=== PATIENT | female | born 1960 | race Caucasian/White ===

== ENCOUNTER → 2018-08-23 15:37 | Outpatient (CLI) | payer MEDICAID, SELFPAY ==
--- NOTE | 2018-08-23 15:41 | BI_ITS ---
MAMMOGRAPHY - BILATERAL SCREENING REASON FOR EXAM: Female, 58 years old. Routine annual screening examination. PERTINENT HISTORY: Sister with breast cancer. TECHNIQUE: Digital bilateral breast eliseo (3D mammographic acquisition) in the CC and MLO projections. 2-D mediolateral oblique (MLO) and craniocaudad (CC) views of both breasts were obtained. CAD: Full Field Digital Mammography with Computer Added Detection was performed. COMPARISON: Comparison is made with prior outside examination dated January 24, 2017. FINDINGS: Breast Composition: There are scattered areas of fibroglandular density. There are no dominant masses or suspicious calcifications. No other significant abnormalities are identified. There has been no significant change since the prior study. BI/SCREEN MAMM (CAD) W/ELISEO BILAT IMPRESSION: Stable bilateral screening mammogram. Yearly follow-up mammogram recommended. (A) ASSESSMENT CATEGORY: BIRADS Category 1: Negative. A letter regarding these results will be sent to the patient by the facility within 30 days. Approximately 10% of breast cancers are not detected by mammography. A normal mammogram should not delay biopsy of a clinically suspicious abnormality. [id number] Electronically Signed: Modesto Worley, at 9:08 EST , Service support ,
== END ==
PROVIDERS: Referring Provider Obstetrics & Gynecology; Visit Provider Obstetrics & Gynecology
DX: Z12.31 Encounter for screening mammogram for malignant neoplasm of breast (principal); Z80.3 Family history of malignant neoplasm of breast
CPT/HCPCS: 77063; 77067

== ENCOUNTER → 2018-10-16 16:45 | Outpatient (CLI) | payer OTHER, SELFPAY ==
[2018-10-16 11:10] VITALS: BMI 37.0
[2018-10-22 17:41] LABS: HPV APTIMA, High Risk Negative (Negative)
== END ==
PROVIDERS: Referring Provider Obstetrics & Gynecology; Visit Provider Obstetrics & Gynecology
DX: Z12.4 Encounter for screening for malignant neoplasm of cervix (principal)
CPT/HCPCS: 87624; 88175; G0145

== ENCOUNTER → 2019-08-27 07:40 | Outpatient (CLI) | payer OTHER, SELFPAY ==
[2018-10-16 11:10] VITALS: BMI 37.0
--- NOTE | 2019-08-27 07:41 | BI_ITS ---
MAMMOGRAPHY - BILATERAL SCREENING REASON FOR EXAM: Female, 59 years old. Routine annual screening examination. PERTINENT HISTORY: Sister with breast cancer. TECHNIQUE: Digital bilateral breast eliseo (3D mammographic acquisition) in the CC and MLO projections. 2-D mediolateral oblique (MLO) and craniocaudad (CC) views of both breasts were obtained. CAD: Full Field Digital Mammography with Computer Added Detection was performed. COMPARISON: Comparison is made with prior examination August 23, 2018. FINDINGS: Breast Composition: There are scattered areas of fibroglandular density. There are no dominant masses or suspicious calcifications. No other significant abnormalities are identified. There has been no significant change since the prior study. BI/SCREEN MAMM (CAD) W/ELISEO BILAT IMPRESSION: Stable bilateral screening mammogram. Yearly follow-up mammogram recommended. (A) ASSESSMENT CATEGORY: BIRADS Category 1: Negative. A letter regarding these results will be sent to the patient by the facility within 30 days. Approximately 10% of breast cancers are not detected by mammography. A normal mammogram should not delay biopsy of a clinically suspicious abnormality. [id number] Electronically Signed: Modesto Worley, at 9:08 EST , Service support ,
== END ==
PROVIDERS: Referring Provider Obstetrics & Gynecology; Visit Provider Obstetrics & Gynecology
DX: Z12.31 Encounter for screening mammogram for malignant neoplasm of breast (principal)
CPT/HCPCS: 77063; 77067

== ENCOUNTER → 2020-09-02 08:35 | Outpatient (CLI) | payer OTHER, SELFPAY ==
[2019-11-13 15:44] VITALS: BMI 37.0
--- NOTE | 2020-09-02 08:38 | BI_ITS ---
MAMMOGRAPHY - BILATERAL SCREENING REASON FOR EXAM: Female, 60 years old. Routine annual screening examination. PERTINENT HISTORY: Sister with breast cancer. TECHNIQUE: Digital bilateral breast eliseo (3D mammographic acquisition) in the CC and MLO projections. 2-D mediolateral oblique (MLO) and craniocaudad (CC) views of both breasts were obtained. CAD: Full Field Digital Mammography with Computer Added Detection was performed. COMPARISON: Comparison is made with prior study dated 08/27/2019 and 08/23/2018. FINDINGS: Breast Composition: There are scattered areas of fibroglandular density. There are no dominant masses or suspicious calcifications. No other significant abnormalities are identified. There has been no significant change since the prior study. BI/SCRN MAMM (CAD)W/ELISEO BILAT IMPRESSION: Stable bilateral screening mammogram. Yearly follow-up mammogram recommended. (A) ASSESSMENT CATEGORY: BIRADS Category 1: Negative. A letter regarding these results will be sent to the patient by the facility within 30 days. Approximately 10% of breast cancers are not detected by mammography. A normal mammogram should not delay biopsy of a clinically suspicious abnormality. [id number] Electronically Signed: Modesto Worley MD at 12:26 EDT , Service support ,
== END ==
PROVIDERS: Referring Provider Obstetrics & Gynecology; Visit Provider Obstetrics & Gynecology
DX: Z12.31 Encounter for screening mammogram for malignant neoplasm of breast (principal)
CPT/HCPCS: 77063; 77067

== ENCOUNTER → 2020-09-29 14:47 | Outpatient (CLI) | payer OTHER, SELFPAY ==
[2020-09-29 11:36] VITALS: BMI 37.2
[2020-09-29 15:13] LABS: Absolute Lymphocyte Count 3.13 X10^3/uL (0.83-4.51); Absolute Neutrophil Count 7.3 X10^3/uL (2.0-7.7); Basophil# 0.06 X10^3/uL; Basophil% 0.5 % (0-1); Eosinophils% 1.7 % (0-5); Hematocrit 42.3 % (37-47); Hemoglobin 13.3 g/dL (12.0-15.0); Lymphocyte # 3.13 X10^3/ul (4.0); Lymphocyte % 27.3 % (19-41); Mean Corp Hgb Conc 31.4 g/dL (32-36); Mean Corpuscular Hgb 27.5 pg (27.0-32.0); Mean Corpuscular Volume 87.4 fL (81-99); Mean Platelet Vol. 10.9 fl (6.2-12.0); Monocyte# 0.74 X10^3/uL; Monocyte% 6.5 % (0-10); NRBC Flagged by Analyzer 0 % (0-5); Neutrophil # 7.29 X10^3/uL (2.7-7.7); Neutrophil % 63.7 % (47-70); Platelet Count 285 K/mm3 (150-450); RBC Distribution Width CV 13.5 % (11.6-14.6); RBC Distribution Width SD 43.2 fl (35.1-43.9); Red Blood Count 4.84 M/mm3 (4.2-5.4); White Blood Count 11.5 K/mm3 (4.4-11.0)
[2020-09-29 16:08] LABS: Anion Gap 5 (5-15); BUN 17 mg/dL (7-18); BUN/Creat Ratio 23.9 RATIO (10-20); Calcium,Total 9.2 mg/dL (8.5-10.1); Chloride 106 mmol/L (98-107); Creatinine, Serum 0.71 mg/dL (0.55-1.02); EST Glomerular Filtration Rate 89 mL/min (>60); Est Glom Filt Rate - Afr Amer 107 mL/min (>60); Glucose 89 mg/dL (74-106); Magnesium 2.4 mg/dL (1.6-2.6); Potassium 3.7 mmol/L (3.5-5.1); Sodium Level 138 mmol/L (136-145); Thyroid Stim Hormone (TSH) 1.44 uIU/mL (0.358-3.74)
== END ==
PROVIDERS: Referring Provider Internal Medicine Cardiovascular Disease; Visit Provider Internal Medicine Cardiovascular Disease
DX: R00.2 Palpitations (principal); R03.0 Elevated blood-pressure reading, without diagnosis of hypertension
CPT/HCPCS: 36415; 80048; 83735; 84443; 85025

== ENCOUNTER → 2020-10-25 12:34 | Outpatient (CLI) | payer OTHER, SELFPAY ==
[2020-09-29 11:36] VITALS: BMI 37.2
== END ==
PROVIDERS: Referring Provider Internal Medicine Cardiovascular Disease; Visit Provider Internal Medicine Cardiovascular Disease
DX: R00.2 Palpitations (principal); R03.0 Elevated blood-pressure reading, without diagnosis of hypertension
CPT/HCPCS: 93225; 93226

== ENCOUNTER → 2020-10-26 14:31 | Outpatient (CLI) | payer OTHER, SELFPAY ==
[2020-09-29 11:36] VITALS: BMI 37.2
--- NOTE | 2020-10-26 14:33 | ECHOD_ITS ---
Reason For Study: Arrhythmia Left Ventricle Normal LV size. Left ventricular systolic function is normal. The estimated ejection fraction is 60 %. Stage 1 diastolic dysfunction. No regional wall motion abnormalities noted. Right Ventricle Normal RV size. Normal systolic function. Atria Normal left atrium. Normal right atrium. Mitral Valve Normal mitral valve. Tricuspid Valve Normal tricuspid valve. Aortic Valve Normal aortic valve. Trisinus/trileaflet aortic valve. Pulmonic Valve Normal pulmonic valve. Great Vessels Normal aortic root. The pulmonary artery is normal size. Normal inferior vena cava. Pericardium/Pleural No pericardial effusion. MMode/2D Measurements & Calculations LVIDd: 4.3 cm IVSd: 0.99 cm LA dimension: 4.1 cm LVIDs: 2.9 cm LVPWd: 1.2 cm FS: 33.1 % LAV(MOD-bp): 45.8 ml LA A4 area: 16.7 cm2 RA A4 area: 14.5 cm2 LAV(MOD-bp) Indexed: 23.0 ml/m2 LAV(MOD-sp2): 45.4 ml LAV(MOD-sp4): 46.1 ml Time Measurements MV dec time: 0.25 sec Doppler Measurements & Calculations MV E max kai: 63.1 cm/sec Lat Peak E' Kai: 9.4 cm/sec Med Peak E' Kai: 5.9 cm/sec MV A max kai: 117.6 cm/sec E/E' lat: 6.7 E/E' med: 10.7 MV E/A: 0.54 MV V2 max: 117.8 cm/sec MV P1/2t max kai: 70.5 cm/sec Ao V2 max: 113.6 cm/sec MV max P.5 mmHg MV P1/2t: 95.5 msec Ao max P.2 mmHg MV V2 mean: 57.9 cm/sec MV mean P.6 mmHg MV dec slope: 216.4 cm/sec2 MV V2 VTI: 22.9 cm MVA(P1/2t): 2.3 cm2 LV V1 max: 97.1 cm/sec PA V2 max: 120.4 cm/sec LV V1 max P.8 mmHg ECHO/Echo Complete Interpretation Summary Normal LV size. Left ventricular systolic function is normal. The estimated ejection fraction is 60 %. Stage 1 diastolic dysfunction. Structurally normal valves. Ordering Physician: Ashu Carpenter Referring Physician: Ashu Crapenter Performed By: Nelson Beltran RCS
== END ==
PROVIDERS: Referring Provider Internal Medicine Cardiovascular Disease; Visit Provider Internal Medicine Cardiovascular Disease
DX: R00.2 Palpitations (principal); R03.0 Elevated blood-pressure reading, without diagnosis of hypertension
CPT/HCPCS: 93306

== ENCOUNTER → 2021-01-20 08:21 | Outpatient (CLI) | payer OTHER, SELFPAY ==
[2021-01-13 08:48] VITALS: BMI 37.0
[2021-01-20 12:24] LABS: Cholesterol 143 mg/dL (200); High Density Lipoprotein 70 mg/dL; Triglycerides 66 mg/dL; Very Low Density Lipoprotein 13 mg/dL (5-40)
[2021-01-20 12:51] LABS: Vitamin D,25 Hydroxy 10.8 ng/mL
[2021-01-20 13:31] LABS: ALB/GLOB Ratio 1.2 RATIO (0.9-2.4); AST(SGOT) 15 U/L (15-37); Alanine Aminotransfer ALT/SGPT 26 U/L (13-56); Albumin, Serum 3.9 g/dL (3.2-5.0); Alkaline Phosphatase 57 U/L (45-117); Anion Gap 6 (5-15); BUN 13 mg/dL (7-18); BUN/Creat Ratio 24.1 RATIO (10-20); Calcium,Total 8.9 mg/dL (8.5-10.1); Chloride 106 mmol/L (98-107); Creatinine, Serum 0.54 mg/dL (0.55-1.02); EST Glomerular Filtration Rate 122 mL/min (>60); Est Glom Filt Rate - Afr Amer 148 mL/min (>60); Globulin 3.2 g/dL (2.2-4.2); Glucose 86 mg/dL (74-106); Potassium 3.7 mmol/L (3.5-5.1); Protein, Total 7.1 g/dL (6.4-8.2); Sodium Level 139 mmol/L (136-145)
== END ==
PROVIDERS: Obstetrics & Gynecology; PCP Internal Medicine; Referring Provider Internal Medicine; Visit Provider Internal Medicine
DX: Z00.00 Encounter for general adult medical examination without abnormal findings (principal); I10 Essential (primary) hypertension; R00.2 Palpitations
CPT/HCPCS: 36415; 80053; 80061; 82306; 84443

== ENCOUNTER 2021-09-12 08:25 | Outpatient (CLI) | payer OTHER, SELFPAY ==
--- NOTE | 2021-09-12 08:29 | BI_ITS ---
MAMMOGRAPHY - BILATERAL SCREENING REASON FOR EXAM: Female, 61 years old. Routine annual screening examination. PERTINENT HISTORY: Sister with breast cancer. TECHNIQUE: Digital bilateral breast eliseo (3D mammographic acquisition) in the CC and MLO projections. 2-D mediolateral oblique (MLO) and craniocaudad (CC) views of both breasts were obtained. CAD: Full Field Digital Mammography with Computer Added Detection was performed. COMPARISON: Comparison is made with prior study dated 09/02/2020 and 08/27/2019. FINDINGS: Breast Composition: There are scattered areas of fibroglandular density. There are no dominant masses or suspicious calcifications. No other significant abnormalities are identified. There has been no significant change since the prior study. BI/SCRN MAMM (CAD)W/ELISEO BILAT IMPRESSION: Stable bilateral screening mammogram. Yearly follow-up mammogram recommended. (A) ASSESSMENT CATEGORY: BIRADS Category 1: Negative. A letter regarding these results will be sent to the patient by the facility within 30 days. Approximately 10% of breast cancers are not detected by mammography. A normal mammogram should not delay biopsy of a clinically suspicious abnormality. [id number] Electronically Signed: Modesto Worley MD at 9:20 EDT ,
== END 2021-09-12 23:59 | disposition home or self-care (01) ==
LOC: OPBI 08:27
PROVIDERS: PCP Internal Medicine; Visit Provider Obstetrics & Gynecology
DX: Z12.31 Encounter for screening mammogram for malignant neoplasm of breast (principal)
CPT/HCPCS: 77063; 77067

== ENCOUNTER → 2022-09-25 | Outpatient (CLI) | payer OTHER, SELFPAY ==
--- NOTE | 2022-09-25 09:56 | BI_ITS ---
MAMMOGRAPHY - BILATERAL SCREENING REASON FOR EXAM: Female, 62 years old. Routine annual screening examination. PERTINENT HISTORY: Sister with breast cancer. Remote left stereotactic breast biopsy. TECHNIQUE: Digital bilateral breast eliseo (3D mammographic acquisition) in the CC and MLO projections. 2-D mediolateral oblique (MLO) and craniocaudad (CC) views of both breasts were obtained. CAD: Full Field Digital Mammography with Computer Added Detection was performed. COMPARISON: Comparison is made with prior study September 12, 2021 and September 02, 2020. FINDINGS: Breast Composition: The breasts are almost entirely fatty. There are no dominant masses or suspicious calcifications. Stable bilateral fat-containing axillary lymph nodes. No other significant abnormalities are identified. There has been no significant change since the prior study. BI/SCRN MAMM (CAD)W/ELISEO BILAT IMPRESSION: Stable bilateral screening mammogram. Yearly follow-up mammogram recommended. (A) ASSESSMENT CATEGORY: BIRADS Category 2: Benign. A letter regarding these results will be sent to the patient by the facility within 30 days. Approximately 10% of breast cancers are not detected by mammography. A normal mammogram should not delay biopsy of a clinically suspicious abnormality. [id number] Electronically Signed: Modesto Worley MD at 10:48 EDT ,
== END | disposition home or self-care (01) ==
LOC: OPBI 09:53
PROVIDERS: PCP Internal Medicine; Visit Provider Obstetrics & Gynecology
DX: Z12.31 Encounter for screening mammogram for malignant neoplasm of breast (principal)
CPT/HCPCS: 77063; 77067

== ENCOUNTER → 2023-10-08 | Outpatient (CLI) | payer OTHER, SELFPAY ==
--- NOTE | 2023-10-08 09:51 | BI_ITS ---
MAMMOGRAPHY - BILATERAL SCREENING REASON FOR EXAM: Female, 63 years old. Routine annual screening examination. PERTINENT HISTORY: Sister with breast cancer. TECHNIQUE: Digital bilateral breast eliseo (3D mammographic acquisition) in the CC and MLO projections. 2-D mediolateral oblique (MLO) and craniocaudad (CC) views of both breasts were obtained. CAD: Full Field Digital Mammography with Computer Added Detection was performed. COMPARISON: Comparison is made with prior study dated September 25, 2022 and September 12, 2021. FINDINGS: Breast Composition: The breasts are almost entirely fatty. There are no dominant masses or suspicious calcifications. Stable bilateral fat-containing axillary lymph nodes. No other significant abnormalities are identified. There has been no significant change since the prior study. BI/SCRN MAMM (CAD)W/ELISEO BILAT IMPRESSION: Stable bilateral screening mammogram. Yearly follow-up mammogram recommended. (A) ASSESSMENT CATEGORY: BIRADS Category 2: Benign. A letter regarding these results will be sent to the patient by the facility within 30 days. Approximately 10% of breast cancers are not detected by mammography. A normal mammogram should not delay biopsy of a clinically suspicious abnormality. [id number] Electronically Signed: Modesto Worley MD at 11:17 EDT ,
== END | disposition home or self-care (01) ==
LOC: OPBI 09:51
PROVIDERS: PCP Internal Medicine; Referring Provider Obstetrics & Gynecology; Visit Provider Obstetrics & Gynecology
DX: Z12.31 Encounter for screening mammogram for malignant neoplasm of breast (principal)
CPT/HCPCS: 77063; 77067

== ENCOUNTER → 2023-12-03 | Outpatient (CLI) | payer OTHER, SELFPAY ==
[2023-12-07 12:09] LABS: HPV APTIMA, High Risk Negative (Negative)
== END | disposition home or self-care (01) ==
LOC: LABSPEC 15:21
PROVIDERS: PCP Internal Medicine; Referring Provider Advanced Practice Midwife; Visit Provider Advanced Practice Midwife
DX: Z12.4 Encounter for screening for malignant neoplasm of cervix (principal)
CPT/HCPCS: 87624; 88175; G0145

== ENCOUNTER 2024-05-06 09:20 | Day surgery (SDC) | payer OTHER, SELFPAY ==
[2024-05-06] VITALS (8 sets, daily range): BP systolic 96–136; BP diastolic 67–91; PULSE 62–100; RESP 16; TEMP 36.3–37; O2SAT 97–100; BMI 34.1
--- NOTE | 2024-05-06 10:13 | PRE.ANES_ITS ---
ASA Classification* ASA Classification ASA Classification: 2 Assessment & Plan Anesthesia* Anesthesia Assessment Anesthesia Assessment: Discussed sedation and/or anesthesia options, risks, benefits, and alternatives with patient/parents/legal guardian/POA. Questions invited. The patient/parents/legal guardian/POA seems to understand and agrees to proceed with anesthesia plan. Reviewed the physical assessment, medical history, allergy history and patient home medications list prior to surgery/procedure/anesthetic and documented any changes. Performed airway and anesthesia risk assessments. Anesthesia Type Anesthesia Type: MAC History Source History Obtained from:: Patient and Chart Anesthesia Focused Assessment* Temperature: 98 F Pulse Rate: 100 Blood Pressure: 136/91 Respiratory Rate: 16 Pulse Ox: 100 Oxygen Delivery Method: Room Air Airway Assessment Mouth opens: >3 cm Mallampati Score: IV Teeth Condition: Dentures (Patient has full upper and lower dentures.) Neck Range of motion (ROM): Full ROM Focused Labs Anesthesia Preop lab: CBC WBC 11.5 K/mm3 (4.4-11.0) H 09/29/20 14:50 RBC 4.84 M/mm3 (4.2-5.4) 09/29/20 14:50 Hgb 13.3 g/dL (12.0-15.0) 09/29/20 14:50 Hct 42.3 % (37-47) 09/29/20 14:50 Plt Count 285 K/mm3 (150-450) 09/29/20 14:50 CHEMISTRY Potassium 3.7 mmol/L (3.5-5.1) 01/20/21 08:23 Sodium 139 mmol/L (136-145) 01/20/21 08:23 Magnesium 2.4 mg/dL (1.6-2.6) 09/29/20 14:50 BUN 13 mg/dL (7-18) 01/20/21 08:23 Creatinine 0.54 mg/dL (0.55-1.02) L 01/20/21 08:23 Glucose 86 mg/dL (74-106) 01/20/21 08:23 TSH 1.50 uIU/mL (0.358-3.74) 01/20/21 08:23 COAG Pre-Assessment Diagnosis/Proposed Procedure Planned Operative Procedure(s): CSCOPE Anesthesia History Anesthesia History - training and documentation specialist: Anesthesia History - training and documentation specialist Hx Hospitalization No 05/01/24 12:27 Any Problems With Anesthesia No 05/01/24 12:27 Cholinesterase deficiency No 05/01/24 12:27 You/Your Family Experience No 05/01/24 12:27 fever (hyperthermia) with Relationship Recent Exposure to Contagious No 05/06/24 09:38 Disease Does patient have nerve No 05/01/24 12:27 stimulator Patient instructed to have device shut off --Does patient have Pacemaker No 05/06/24 09:38 or ICD? When Was Last Pacemaker Check QUESTION #4 FULL TEXT: You/Your Family Experience fever (hyperthermia) with Anesthesia Last Oral Intake Last Oral intake: Last Oral Intake NPO since 06:30 05/06/24 09:38 Meds taken in AM with sips of water? Meds patient instructed to take am of surgery Any additional information?: Yes NPO since: 06:30 (Patient finished prep at 6:30 AM.) PONV PONV - training and documentation specialist: PONV - training and documentation specialist Female Yes 05/01/24 12:27 HX of Motion Sickness No 05/01/24 12:27 HX of N/V After Surgery No 05/01/24 12:27 Non-Smoker Yes 05/01/24 12:27 Duration of Surgery greater No 05/01/24 12:27 than 60 minutes Number of Risk Factors 2 05/01/24 12:27 PONV Score Moderate Risk 05/01/24 12:27 Height & Weight Height & Weight: Anesthesia: Height & Weight Height 5 ft 4 in 05/06/24 09:38 Weight: 90.265 kg 05/06/24 09:38 Body Mass Index (BMI) 34.1 05/06/24 09:38 Respiratory Assessment Respiratory Assessment - training and documentation specialist: Respiratory Tract Infection Hx - training and documentation specialist Hx Respiratory Tract Infection No 05/01/24 12:27 STOP Sleep Apnea STOP Sleep Apnea - training and documentation specialist: STOP Sleep Apnea - training and documentation specialist Hx Hypertension Yes: CONTROLLED WITH MED 05/01/24 12:27 Hx Sleep Apnea No 05/01/24 12:27 CPAP BIPAP Do you snore loudly (louder No 05/01/24 12:27 than talking or can be heard Do you often feel tired/ No 05/01/24 12:27 fatigued/ sleepy during daytime? Has anyone observed you stop No 05/01/24 12:27 breathing during sleep? STOP Results Negative 05/01/24 12:27 QUESTION #5 FULL TEXT : Do you snore loudly (louder than talking or can be heard through closed doors)? 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 Specify any problems Hx of Preganancy in last 3 N/A 05/01/24 12:27 Months Nurse Filling Out Transfusion NBUCHER 05/01/24 12:27 & Questions: Date: 05/01/24 05/01/24 12:27 Time: 12:28 05/01/24 12:27 Patient unable to answer at this time (ie. confused, unrespo /Reproduction History /Reproductive History - training and documentation specialist: /Reproductive Hx- training and documentation specialist Hx Now No 05/01/24 12:27 Gestational Age (in weeks): EDC: Hx Hx Para Hx Section SAB No 05/01/24 12:27 [facility] Medical History (Updated 05/01/24 @ 12:32 by Christine Osman) Wears glasses Wears dentures Arthritis Former smoker History of Holter monitoring History of echocardiogram Cardiology follow-up encounter Hypertension Colon cancer screening Allergic dermatitis Pain of right heel Essential hypertension Intermittent palpitations Obesity (BMI 30-39.9) Home Medications ?Medication ?Instructions ?Recorded ?Last Taken ?Type losartan 100 mg tablet 50 mg (1/2 x 100 mg) PO QHS #0 tabs 04/23/24 Unknown Rx Allergy/AdvReac Type Severity Reaction Status Date / Time indigotindisulfonic acid Allergy Severe Rash Verified 05/06/24 09:37 (From [facility]) red dye Allergy Severe Itching Verified 05/06/24 09:37 adhesive AdvReac Rash Verified 05/06/24 09:37 Family History Mother Cancer Brain Father Cancer pancreatic Heart disease ICD Sister Breast cancer Uncle Myocardial infarction, Onset Age: 55 Other Hypertension Surgical History History of tonsillectomy History of appendectomy History of tubal ligation History of endometrial ablation Social History Smoking Status: Former smoker quit date: 06/25/03 pack-years: 18 alcohol intake: never substance use type: does not use caffeine: No what type of physical activity do you participate in: walking and bicycling seatbelt use: always do you feel safe at home: Yes additional social history: Chun- Retired Patient works at [employer] Review of Systems (Anesthesia) ROS Narrative System reviewed and no additional complaints, except as documented.
--- NOTE | 2024-05-06 10:28 | H&P.OPEN ---
HPI - General HPI Narrative JOEY ROBERT, is a 63 F who presents for screening colonoscopy. Patient reports that she has never had a colonoscopy in the past. She denies abdominal pain or blood in the stool. She has no family history of colon cancer. [facility] Medical History (Updated 05/01/24 @ 12:32 by Christine Osman) Wears glasses Wears dentures Arthritis Former smoker History of Holter monitoring History of echocardiogram Cardiology follow-up encounter Hypertension Colon cancer screening Allergic dermatitis Pain of right heel Essential hypertension Intermittent palpitations Obesity (BMI 30-39.9) Home Medications ?Medication ?Instructions ?Recorded ?Last Taken ?Type losartan 100 mg tablet 50 mg (1/2 x 100 mg) PO QHS #0 tabs 04/23/24 Unknown Rx Allergy/AdvReac Type Severity Reaction Status Date / Time indigotindisulfonic acid Allergy Severe Rash Verified 05/06/24 09:37 (From [facility]) red dye Allergy Severe Itching Verified 05/06/24 09:37 adhesive AdvReac Rash Verified 05/06/24 09:37 Family History Mother Cancer Brain Father Cancer pancreatic Heart disease ICD Sister Breast cancer Uncle Myocardial infarction, Onset Age: 55 Other Hypertension Surgical History History of tonsillectomy History of appendectomy History of tubal ligation History of endometrial ablation Social History Smoking Status: Former smoker quit date: 06/25/03 pack-years: 18 alcohol intake: never substance use type: does not use caffeine: No what type of physical activity do you participate in: walking and bicycling seatbelt use: always do you feel safe at home: Yes additional social history: Chun- Retired Patient works at [employer] Past Medical/Surgical History Planned Operation Planned Operative Procedure(s): CSCOPE Previous Hospitalizations/Surgeries HX Hospitalizations: No Any Problems With Anesthesia: No You/Your Family Experience Fever (Hyperthermia) With Anes: No Cholinesterase deficiency: No Cardiovascular Hx Hypertension: Yes (CONTROLLED WITH MED) Respiratory Hx Sleep Apnea: No Hx Respiratory Tract Infection/Cold (presently): No Do You Snore Loudly (louder than talking or can be heard): No Do You Often Feel Tired/ Fatigued/ Sleepy Dring Daytime?: No Has Anyone Observed You Stop Breathing During Sleep?: No Result (for STOP score): Negative Smoking Status: Former smoker Neurological Does patient have nerve stimulator: No Reproduction : No Miscellaneous Recent Exposure to Contagious Disease: No Allergies indigotindisulfonic acid (From [facility]) Allergy (Severe, Verified 05/06/24 09:37) Rash red dye Allergy (Severe, Verified 05/06/24 09:37) Itching Rash adhesive Adverse Reaction (Verified 05/06/24 09:37) Rash Blisters. Band aids and adhesive tape Discharge Is Pt Admitted From a Jail, or a Longterm: No After D/C, Where Do you Plan to Go: Return Home Vital Signs Vital Signs Vital Signs: 05/06/24 09:38 05/06/24 10:18 Temperature 98 F 98 F Temperature Source Temporal Pulse Rate 100 100 Respiratory Rate 16 16 Blood Pressure 136/91 H 136/91 H Blood Pressure Mean 106 Blood Pressure Source Monitor Blood Pressure Position Semi-Fowlers Blood Pressure Location Left Arm Pulse Ox 100 100 Oxygen Delivery Method Room Air Room Air Weight Weight: 199 lb Body Mass Index (BMI) 34.1 Physical Exam Const alert and oriented x3 HEENT normocephalic Eyes PERRL Resp normal respiratory effort and normal air movement Cardio regular rate and regular rhythm GI soft to palpation, non-tender and non-distended Extremity normal to inspection Assessment & Plan Assessment/Plan (1) Colon cancer screening: PLAN: I explained endoscopy in detail to the patient. I explained the risks including but not limited to stroke or heart attack with anesthesia, perforation of the GI tract, bleeding, infection. I explained that any of these could necessitate further emergency surgery. The patient understands and all questions were answered sufficiently. The patient wishes to proceed with procedure. Art Hurt MD Pager: [facility] [address] [place] [address], [address] [place] [address] Office: Surgery Risks - Colonoscopy Risks Include but are not Limited To: Risks include but are not limited to: Bleeding, perforation requiring further surgery, inability to complete colonoscopy requiring barium enema.
--- NOTE | 2024-05-06 10:59 | OP.CCLET_ITS ---
05/06/2024 Jennifer Brown [facility] [address] [place] [address] Re : Colonoscopy procedure for Polly Matos Dear Dr. Brown This procedure was performed on Monday, May 06, 2024. My impressions and recommendations are as follows: Impressions : - The entire examined colon is normal on direct and retroflexion views. - No specimens collected. Recommendations : - Discharge patient to home. - Resume previous diet. - Continue present medications. - Repeat colonoscopy in 10 years for screening purposes. My findings are described in the full procedure note, which is enclosed. If I can be of further assistance, please feel free to contact me at Doctor phone number(s): , Work: . Sincerely, Art Hurt MD 05/06/2024 10:58:39 AM This report has been signed electronically.
--- NOTE | 2024-05-06 10:59 | OP.COLON_ITS ---
Patient Name: Polly Matos Procedure Date: 05/06/2024 10:29 AM Date of : 1960 Age: 63 Procedure: Colonoscopy Indications: Screening for colorectal malignant neoplasm Providers: Art Hurt MD Referring MD: Jennifer Brown Medicines: Propofol per Anesthesia Patient Profile: This is a 63 year old female. Refer to note in patient chart for documentation of history and physical. Last Colonoscopy: none. The patient's first colonoscopy is today. Complications: No immediate complications. Procedure: Pre-Anesthesia Assessment: - Prior to the procedure, a History and Physical was performed, and patient medications and allergies were reviewed. The patient's tolerance of previous anesthesia was also reviewed. The risks and benefits of the procedure and the sedation options and risks were discussed with the patient. All questions were answered, and informed consent was obtained. Prior Anticoagulants: The patient has taken no anticoagulant or antiplatelet agents. ASA Grade Assessment: II - A patient with mild systemic disease. After reviewing the risks and benefits, the patient was deemed in satisfactory condition to undergo the procedure. After I obtained informed consent, the scope was passed under direct vision. Throughout the procedure, the patient's blood pressure, pulse, and oxygen saturations were monitored continuously. The Colonoscope was introduced through the anus and advanced to the cecum, identified by appendiceal orifice and ileocecal valve. The colonoscopy was performed without difficulty. The patient tolerated the procedure well. The quality of the bowel preparation was good. The ileocecal valve, appendiceal orifice, and rectum were photographed. Scope In: 10:42:52 AM Scope Withdrawal Time 0 hours 6 minutes 1 second Scope Out: 10:54:10 AM Total Procedure Duration Time 0 hours 11 minutes 18 seconds Findings: The entire examined colon appeared normal on direct and retroflexion views. Impression: - The entire examined colon is normal on direct and retroflexion views. - No specimens collected. Recommendation: - Discharge patient to home. - Resume previous diet. - Continue present medications. - Repeat colonoscopy in 10 years for screening purposes. Procedure Code(s): --- Professional --- 42939, Colonoscopy, flexible; diagnostic, including collection of specimen(s) by brushing or washing, when performed (separate procedure) Diagnosis Code(s): --- Professional --- Z12.11, Encounter for screening for malignant neoplasm of colon CPT copyright 2021 [employer]. All rights reserved. The codes documented in this report are preliminary and upon diesel engine erector review may be revised to meet current compliance requirements. Art Hurt MD 05/06/2024 10:58:39 AM This report has been signed electronically. Number of Addenda: 0 Note Initiated On: 05/06/2024 10:29 AM
--- NOTE | 2024-05-06 11:03 | PCM.POST.ANE ---
Anesthesia: Postop Eval I Current Vital Signs Temperature: 97.4 F Pulse Rate: 70 Blood Pressure: 99/85 Respiratory Rate: 16 Pulse Ox: 99 Oxygen Delivery Method: Room Air Assessment Airway patent: Yes Spontaneous unlabored respirations: Yes Mental status: Awake and Calm nausea: No Vomiting: No Anesthesia Complication: No Fluid Hydration Crystalloid volume administer (ml): 30 Total IV fluid infused: 30 Progress Note Anesthesia document: Postop Eval 1 completed: Yes
--- NOTE | 2024-05-06 13:59 | PCM.POSTANE2 ---
Anesthesia Postop Eval I Sum Postop Eval Completion status Anesthesia document: Postop Eval 1 completed: Yes Anesthesia Postop Eval I Summary Anesthesia Postop Eval I Summary: Anesthesia Postop Eval I: Assessment Summary Airway patent Yes 05/06/24 11:04 [email or web address] Spontaneous unlabored Yes 05/06/24 11:04 [email or web address] respirations Mental status Awake,Calm 05/06/24 11:04 [email or web address] nausea No 05/06/24 11:04 [email or web address] Vomiting No 05/06/24 11:04 [email or web address] Anesthesia Postop Eval I: Fluid Summary Crystalloid volume administer 30 05/06/24 11:04 [email or web address] (ml) Colloids volume administered ( ml) Blood Product volume administered (ml) Total IV fluid infused 30 05/06/24 11:04 [email or web address] Anesthesia Postop Eval I: Summary Notes Anesthesia Complication No 05/06/24 11:04 [email or web address] Anesthesia Complication Comment: Post-operative progress note Anesthesia: Postop Eval II Evaluation Mental status: Awake and Calm Pain Level: 0 nausea: No Vomiting: No Complications Anesthesia Complication: No
== END 2024-05-06 11:45 | disposition home or self-care (01) ==
LOC: EN 09:20 → AC 09:22
PROVIDERS: PCP Internal Medicine; Referring Provider Internal Medicine; Visit Provider Surgery
PROC: 0DJD8ZZ Inspection of Lower Intestinal Tract, Via Natural or Artificial Opening Endoscopic (ICD-10-PCS; CPT 45378; principal; 2024-05-06 10:25)
DX: Z12.11 Encounter for screening for malignant neoplasm of colon (principal); I10 Essential (primary) hypertension; Z87.891 Personal history of nicotine dependence; Z79.899 Other long term (current) drug therapy
CPT/HCPCS: 45378; A4216; J2405

== ENCOUNTER → 2024-10-08 | Outpatient (CLI) | payer MEDICARE, SELFPAY ==
--- NOTE | 2024-10-08 10:00 | BI_ITS ---
EXAM: SCRN MAMM (CAD)W/ELISEO BILAT 10/08/2024 CLINICAL HISTORY: F, Age 64 y/o , SCREENING FOR BREAST CANCER TECHNIQUE: Bilateral screening digital breast tomosynthesis with 2D and 3D images. Computer aided detection. COMPARISON: Prior exam(s) dated 10/08/2023, 09/25/2022. FINDINGS: TISSUE DENSITY: The breast tissue is almost entirely fatty. Bilateral Breast Mammographic Findings: No significant masses, calcifications or other abnormalities are identified. BI/SCRN MAMM (CAD)W/ELISEO BILAT IMPRESSION: Right Breast: BIRADS 1 NEGATIVE. Left Breast: BIRADS 1 NEGATIVE. OVERALL FINAL ASSESSMENT: BIRADS 1 NEGATIVE. RECOMMENDATION: Routine annual follow-up in 1 Year A letter with findings and recommendations will be mailed to the patient. Reading Location: [facility]
== END | disposition home or self-care (01) ==
PROVIDERS: PCP Internal Medicine; Referring Provider Obstetrics & Gynecology; Visit Provider Obstetrics & Gynecology
DX: Z12.31 Encounter for screening mammogram for malignant neoplasm of breast (principal)
CPT/HCPCS: 77063; 77067

== ENCOUNTER → 2024-11-06 | Outpatient (CLI) | payer MEDICARE, SELFPAY ==
[2024-11-06 15:16] LABS: Absolute Lymphocyte Count 4.03 X10^3/uL (0.83-4.51); Basophil# 0.07 X10^3/uL; Basophil% 0.7 % (0-1); Eosinophil# 0.26 X10^3/uL; Eosinophils% 2.5 % (0-5); Hematocrit 40.9 % (37-47); Hemoglobin 13.3 g/dL (12.0-15.0); Lymphocyte # 4.03 X10^3/ul (0.83-4.51); Mean Corp Hgb Conc 32.5 g/dL (32-36); Mean Corpuscular Hgb 27.9 pg (27.0-32.0); Mean Corpuscular Volume 85.9 fL (81-99); Mean Platelet Vol. 11.7 fl (6.2-12.0); Monocyte# 0.91 X10^3/uL; Monocyte% 8.8 % (0-10); NRBC Flagged by Analyzer 0 % (0-5); Neutrophil # 5.03 X10^3/uL (2.7-7.7); Neutrophil % 48.7 % (47-70); Platelet Count 253 K/mm3 (150-450); RBC Distribution Width CV 13.7 % (11.6-14.6); RBC Distribution Width SD 42.9 fl (35.1-43.9); Red Blood Count 4.76 M/mm3 (4.2-5.4); White Blood Count 10.3 K/mm3 (4.4-11.0)
[2024-11-06 15:36] LABS: ALB/GLOB Ratio 1.7 RATIO (0.9-2.4); AST(SGOT) 18 U/L (<=31); Alanine Aminotransfer ALT/SGPT 12 U/L (<=34); Albumin, Serum 4.5 g/dL (3.4-4.8); Alkaline Phosphatase 67 U/L (35-104); Anion Gap 12 (5-15); BUN 20 mg/dL (4-19); Calcium,Total 9.5 mg/dL (7.6-11.0); Carbon Dioxide 24.3 mmol/L (21.0-32.0); Chloride 104 mmol/L (98-108); Cholesterol 157 mg/dL (<=200); Creatinine, Serum 0.75 mg/dL (0.70-1.20); EST Glomerular Filtration Rate 88 (>60); Globulin 2.6 g/dL (2.2-4.2); Glucose 116 mg/dL (70-99); High Density Lipoprotein 60 mg/dL; Low Density Lipoprotein Calc. 68 mg/dL; Potassium 4.1 mmol/L (3.3-5.1); Protein, Total 7.1 g/dL (5.9-8.4); Sodium Level 141 mmol/L (133-145); Total Bilirubin 0.31 mg/dL (0.00-1.30); Triglycerides 142 mg/dL; Very Low Density Lipoprotein 28 mg/dL (5-40)
== END | disposition home or self-care (01) ==
LOC: BIMLAB 13:56
PROVIDERS: PCP Internal Medicine; Referring Provider Internal Medicine; Visit Provider Internal Medicine
DX: I10 Essential (primary) hypertension (principal)
CPT/HCPCS: 36415; 80053; 80061; 85025

== ENCOUNTER → 2024-11-13 | Outpatient (CLI) | payer MEDICARE, SELFPAY ==
--- NOTE | 2024-11-13 08:48 | BD_ITS ---
PROCEDURE: DEXA BONE DENSITY STUDY 11/13/2024 REASON FOR EXAM: POSTMENOPAUSAL F, age 64 y/o . Postmenopausal. TECHNIQUE: DXA scan of sites with data reported below. REFERENCE LINKS: ISCD Adult Positions COMPARISON: None FINDINGS: BMD and T-SCORES Lumbar spine: 1.142 g/cm2, T-score 1.1 Levels: L1 through L4 Left femoral neck: 0.845 g/cm2, T-score 0.0 Femoral neck comparison data not recommended for monitoring change. Left total hip: 1.003 g/cm2, T-score 0.5 Right femoral neck: 0.709 g/cm2, T-score -1.3 Femoral neck comparison data not recommended for monitoring change. Right total hip: 0.900 g/cm2, T-score -0.3 The World Health Organization has defined the following categories based on bone density: Normal bone density: T-score equal to or greater than -1.0 Osteopenia: T-score between -1.0 and -2.5 Osteoporosis: T-score equal to or less than -2.5 The patient does meet the pharmacological treatment recommendations for prevention of osteoporosis. BD/Dexa Bone Density Study IMPRESSION: OSTEOPENIA. Recommend follow-up as clinically warranted. Reading Location: [place] [id number]
== END | disposition home or self-care (01) ==
LOC: OPBD 08:46
PROVIDERS: PCP Internal Medicine; Referring Provider Internal Medicine; Visit Provider Internal Medicine
DX: Z78.0 Asymptomatic menopausal state (principal)
CPT/HCPCS: 77080

== ENCOUNTER → 2025-05-08 | Outpatient (CLI) | payer MEDICARE, SELFPAY ==
[2025-05-08 11:11] LABS: Hematocrit 39.2 % (37-47); Hemoglobin 13.2 g/dL (12.0-15.0); Immature Granulocytes Count 0.030 X10^3/uL (0.0-0.0); Mean Corp Hgb Conc 33.7 g/dL (32-36); Mean Corpuscular Volume 85.0 fL (81-99); Mean Platelet Vol. 11.4 fl (6.2-12.0); NRBC Flagged by Analyzer 0 % (0-5); Platelet Count 216 K/mm3 (150-450); RBC Distribution Width CV 13.6 % (11.6-14.6); RBC Distribution Width SD 42.5 fl (35.1-43.9); Red Blood Count 4.61 M/mm3 (4.2-5.4); White Blood Count 10.3 K/mm3 (4.4-11.0)
[2025-05-08 12:07] LABS: AST(SGOT) 26 U/L (<=31); Alanine Aminotransfer ALT/SGPT 17 U/L (<=34); Albumin, Serum 4.3 g/dL (3.4-4.8); Alkaline Phosphatase 54 U/L (35-104); Anion Gap 8 (5-15); BUN 14 mg/dL (4-19); BUN/Creat Ratio 20.8 RATIO (10-20); Calcium,Total 9.4 mg/dL (7.6-11.0); Carbon Dioxide 26.5 mmol/L (21.0-32.0); Chloride 105 mmol/L (98-108); Globulin 2.5 g/dL (2.2-4.2); Glucose 94 mg/dL (70-99); Magnesium 2.1 mg/dL (1.5-2.2); Potassium 4.0 mmol/L (3.3-5.1)
== END | disposition home or self-care (01) ==
LOC: LAB 10:42
PROVIDERS: PCP Internal Medicine; Referring Provider Internal Medicine; Visit Provider Internal Medicine
DX: R00.2 Palpitations (principal)
CPT/HCPCS: 36415; 80053; 83735; 84439; 84443; 85025